=== PATIENT | male | born 1955 | race Hispanic/Latino ===

== ENCOUNTER 2020-10-19 20:31 | Inpatient (IN) | payer OTHER ==
[~2020-10-19] VITALS: Ht 170.2 cm; Wt 81.6 kg
[2020-10-19 21:09] LABS: BASOPHILS % 0.1 % (0.0-1.0); EOSINOPHILS % 0.3 % (0.0-6.0); HEMATOCRIT 24.9 % (38.2-49.6); HEMOGLOBIN 8.1 g/dL (14.0-18.0); LYMPHOCYTES # (AUTO) 1.1 (1.0-3.2); LYMPHOCYTES % 15.4 % (18.0-39.1); MEAN CORPUSCULAR HEMOGLOBIN 33.6 pg (28-32); MEAN CORPUSCULAR HGB CONC 32.5 g/dL (31-35); MEAN CORPUSCULAR VOLUME 103.3 fL (81-99); MONOCYTES # (AUTO) 0.4 (0.2-0.8); MONOCYTES % 5.4 % (4.4-11.3); NEUTROPHILS # (AUTO) 5.6 (2.1-6.9); NEUTROPHILS % 78.4 % (38.7-80.0); PLATELET COUNT 187 x10e3/uL (140-360); RED BLOOD COUNT 2.41 x10e6/uL (4.3-5.7); RED CELL DISTRIBUTION WIDTH 20.8 % (11.7-14.4)
[2020-10-19 21:14] LABS: CLARITY,URINE CLOUDY (CLEAR); COLOR,URINE AMBER (YELLOW)
[2020-10-19 21:15] LABS: KETONES,URINE NEGATIVE (NEGATIVE); LEUKOCYTE ESTERASE ,URINE LARGE (NEGATIVE); NITRITE,URINE NEGATIVE (NEGATIVE); PROTEIN,URINE DIPSTICK >=300 (NEGATIVE); URINE UROBILINOGEN 2 mg/dL (0.2 - 1)
[2020-10-19 21:26] LABS: BACTERIA,URINE MANY /HPF
[2020-10-19 21:27] LABS: ALBUMIN 2.1 g/dL (3.5-5.0); ALBUMIN/GLOBULIN RATIO 0.4 (0.8-2.0); ANION GAP 15.1 mmol/L (8-16); CALCIUM 8.2 mg/dL (8.4-10.2); CREATININE, SERUM 1.7 mg/dL (0.72-1.25); POTASSIUM 4.1 mmol/L (3.5-5.1)
[2020-10-19 21:33] LABS: CREATINE KINASE MB 10.1 ng/mL (0-5.0)
[2020-10-19] MEDS ORDERED: Vancomycin IV 1 GM in SODIUM CHLORIDE 0.9% 250ML 250 ML IV STA (23:49)
[2020-10-20] MEDS ORDERED: CEFEPIME 1 GM in SODIUM CHLORIDE 0.9% 50ML 50 ML IV SCH ×2
[2020-10-20] MEDS ORDERED: ONDANSETRON HCL INJ 2MG/ML 2ML 2 MG/ML VIAL IV STA (00:18)
[2020-10-20] MEDS ORDERED: MORPHINE SULFATE INJ 4 MG/ML INJ 1ML IV STA (00:18)
[2020-10-20] MEDS ORDERED: ONDANSETRON HCL INJ 2MG/ML 2ML 2 MG/ML VIAL ONE (00:19)
[2020-10-20] MEDS ORDERED: MORPHINE SULFATE INJ 2 MG/ML SYR ONE (00:19)
[2020-10-20] MEDS ORDERED: SODIUM CHLORIDE 0.9% 1000ML 1,000 ML IV ONE (01:15)
[2020-10-20] MEDS ORDERED: BUMETANIDE1 MG PO (05:40)
[2020-10-20] MEDS ORDERED: ASPIRIN81 MG PO (05:40)
[2020-10-20] MEDS ORDERED: CETIRIZINE HCL5 MG PO (05:40)
[2020-10-20] MEDS ORDERED: METOPROLOL TART25 MG PO (05:40)
[2020-10-20] MEDS ORDERED: LIDOCAINE PATCH (05:40)
[2020-10-20] MEDS ORDERED: MIDODRINE HCL5 MG PO (05:40)
[2020-10-20] MEDS ORDERED: INSULIN LI100 UNIT/1 SC (05:40)
[2020-10-20] MEDS ORDERED: LACTULOSE20 GM/30 M PO (05:40)
[2020-10-20] MEDS ORDERED: ACETAMINOPHEN325 M1 PO (05:40)
[2020-10-20] MEDS ORDERED: MS CONTIN15 MG PO (06:03)
[2020-10-20] MEDS ORDERED: CRESTOR10 MG PO (06:03)
[2020-10-20] MEDS ORDERED: NEOMYCIN SULFA500 MG PO (06:03)
[2020-10-20] MEDS ORDERED: PERCOCET 10-321 EACH PO (06:03)
[2020-10-20] MEDS ORDERED: ZOFRAN4 MG PO (06:03)
[2020-10-20 09:27] LABS: CREATINE KINASE MB 5.7 ng/mL (0-5.0)
[2020-10-20] MEDS ORDERED: GADOBENATE DIMEGLUMINE 1 ML IV ONE (10:48)
[2020-10-20] MEDS ORDERED: SODIUM CHLORIDE 0.9% 250ML 250 ML ONE (13:33)
[2020-10-20] MEDS: CEFTRIAXONE 1 GM in SODIUM CHLORIDE 0.9% 50ML 50 ML IV SCH (18:00)
[2020-10-21] MEDS ORDERED: DEXTROSE 50% SYRINGE 50 ML IV PRN (14:45)
[2020-10-21] MEDS: INSULIN REGULAR, HUMAN 100 UNIT/1 ML 3ML VIAL SQ SCH ×2 (17:06→21:00)
[2020-10-21] MEDS: LACTULOSE SYRUP 20 GM/30 ML UDC PO SCH ×2 (17:07→21:00)
[2020-10-21] MEDS: CEFTRIAXONE 1 GM in SODIUM CHLORIDE 0.9% 50ML 50 ML IV SCH (17:07)
[2020-10-21 17:26] LABS: CREATINE KINASE MB 5.6 ng/mL (0-5.0)
[2020-10-21 20:00] VITALS: BP 127/67
[2020-10-21 23:40] VITALS: BP 136/69
[2020-10-21] MEDS ORDERED: SODIUM CHLORIDE 0.9% 250ML 250 ML ONE (23:51)
[2020-10-22] VITALS (7 sets, daily range): BP systolic 118–138; BP diastolic 64–75
[2020-10-22] MEDS ORDERED: SODIUM CHLORIDE 0.9% 250ML 250 ML IV ONE (00:15)
[2020-10-22 02:17] LABS: BASOPHILS % 0.3 % (0.0-1.0); EOSINOPHILS # (AUTO) 0.1 (0.0-0.4); EOSINOPHILS % 0.7 % (0.0-6.0); HEMATOCRIT 21.1 % (38.2-49.6); LYMPHOCYTES # (AUTO) 1.3 (1.0-3.2); LYMPHOCYTES % 8.8 % (18.0-39.1); MEAN CORPUSCULAR HEMOGLOBIN 34.5 pg (28-32); MEAN CORPUSCULAR HGB CONC 32.7 g/dL (31-35); MEAN CORPUSCULAR VOLUME 105.5 fL (81-99); MONOCYTES # (AUTO) 0.8 (0.2-0.8); MONOCYTES % 5.2 % (4.4-11.3); NEUTROPHILS # (AUTO) 12.7 (2.1-6.9); NEUTROPHILS % 84.1 % (38.7-80.0); PLATELET COUNT 131 x10e3/uL (140-360); RED CELL DISTRIBUTION WIDTH 21.4 % (11.7-14.4)
[2020-10-22 02:19] LABS: HEMOGLOBIN 6.9 g/dL (14.0-18.0)
[2020-10-22] MEDS: INSULIN REGULAR, HUMAN 100 UNIT/1 ML 3ML VIAL SQ SCH ×5 (07:30→21:31)
[2020-10-22] MEDS: LACTULOSE SYRUP 20 GM/30 ML UDC PO SCH ×2 (08:45→21:00)
[2020-10-22] MEDS: HYDROMORPHONE 1MG/1ML INJ IV PRN ×2 (15:10→20:25)
[2020-10-22] MEDS: CEFTRIAXONE 1 GM in SODIUM CHLORIDE 0.9% 50ML 50 ML IV SCH (16:39)
[2020-10-23] VITALS (7 sets, daily range): BP systolic 114–137; BP diastolic 58–79
[2020-10-23] MEDS: HYDROMORPHONE 1MG/1ML INJ IV PRN ×4 (02:53→20:50)
[2020-10-23 05:30] LABS: BASOPHILS % 0.2 % (0.0-1.0); EOSINOPHILS # (AUTO) 0.3 (0.0-0.4); EOSINOPHILS % 3.4 % (0.0-6.0); HEMATOCRIT 25.3 % (38.2-49.6); HEMOGLOBIN 8.4 g/dL (14.0-18.0); LYMPHOCYTES # (AUTO) 1.2 (1.0-3.2); LYMPHOCYTES % 14.9 % (18.0-39.1); MEAN CORPUSCULAR HEMOGLOBIN 32.4 pg (28-32); MEAN CORPUSCULAR HGB CONC 33.2 g/dL (31-35); MEAN CORPUSCULAR VOLUME 97.7 fL (81-99); MONOCYTES # (AUTO) 0.4 (0.2-0.8); MONOCYTES % 5.2 % (4.4-11.3); NEUTROPHILS # (AUTO) 6.3 (2.1-6.9); NEUTROPHILS % 75.8 % (38.7-80.0); PLATELET COUNT 115 x10e3/uL (140-360); RED BLOOD COUNT 2.59 x10e6/uL (4.3-5.7); RED CELL DISTRIBUTION WIDTH 21.3 % (11.7-14.4)
[2020-10-23 05:49] LABS: INR 1.23; PROTHROMBIN TIME 16.2 seconds (11.9-14.5)
[2020-10-23 05:50] LABS: PARTIAL THROMBOPLASTIN TIME 42.8 seconds (23.8-35.5)
[2020-10-23 05:58] LABS: ANION GAP 8.2 mmol/L (8-16); CALCIUM 7.7 mg/dL (8.4-10.2); CREATININE, SERUM 1.11 mg/dL (0.72-1.25); POTASSIUM 4.2 mmol/L (3.5-5.1)
[2020-10-23] MEDS: INSULIN REGULAR, HUMAN 100 UNIT/1 ML 3ML VIAL SQ SCH ×5 (07:30→21:20)
[2020-10-23] MEDS: LACTULOSE SYRUP 20 GM/30 ML UDC PO SCH ×2 (09:00→20:58)
[2020-10-23] MEDS: CEFTRIAXONE 1 GM in SODIUM CHLORIDE 0.9% 50ML 50 ML IV SCH (16:33)
[2020-10-24] VITALS (8 sets, daily range): BP systolic 118–157; BP diastolic 54–121
[2020-10-24] MEDS: HYDROMORPHONE 1MG/1ML INJ IV PRN ×4 (05:05→23:28)
[2020-10-24] MEDS: LACTULOSE SYRUP 20 GM/30 ML UDC PO SCH ×2 (09:00→22:13)
[2020-10-24] MEDS ORDERED: SODIUM CHLORIDE 0.9% 250ML 0 ML ONE (09:38)
[2020-10-24] MEDS: INSULIN REGULAR, HUMAN 100 UNIT/1 ML 3ML VIAL SQ SCH ×3 (11:30→21:00)
[2020-10-24] MEDS: CEFTRIAXONE 1 GM in SODIUM CHLORIDE 0.9% 50ML 50 ML IV SCH (17:26)
[2020-10-25] VITALS (8 sets, daily range): BP systolic 128–156; BP diastolic 62–92
[2020-10-25] MEDS: INSULIN REGULAR, HUMAN 100 UNIT/1 ML 3ML VIAL SQ SCH ×4 (07:30→22:00)
[2020-10-25] MEDS: LACTULOSE SYRUP 20 GM/30 ML UDC PO SCH ×2 (09:00→22:00)
[2020-10-25] MEDS: HYDROMORPHONE 1MG/1ML INJ IV PRN ×4 (12:49→22:00)
[2020-10-25] MEDS: CEFTRIAXONE 1 GM in SODIUM CHLORIDE 0.9% 50ML 50 ML IV SCH (17:30)
[2020-10-26] VITALS (8 sets, daily range): BP systolic 105–141; BP diastolic 46–75
[2020-10-26] MEDS: HYDROMORPHONE 1MG/1ML INJ IV PRN ×3 (03:38→15:53)
[2020-10-26] MEDS: INSULIN REGULAR, HUMAN 100 UNIT/1 ML 3ML VIAL SQ SCH ×4 (07:30→21:00)
[2020-10-26] MEDS: LACTULOSE SYRUP 20 GM/30 ML UDC PO SCH ×2 (08:28→20:58)
[2020-10-26] MEDS: METHOCARBAMOL 500 MG TAB PO SCH ×2 (13:07→20:58)
[2020-10-26] MEDS: CEFTRIAXONE 1 GM in SODIUM CHLORIDE 0.9% 50ML 50 ML IV SCH (17:24)
[2020-10-27 00:58] VITALS: BP 140/78
[2020-10-27 05:38] VITALS: BP 157/77
[2020-10-27] MEDS: HYDROMORPHONE 1MG/1ML INJ IV PRN ×3 (06:00→14:40)
[2020-10-27 08:04] VITALS: BP 150/68
[2020-10-27] MEDS: INSULIN REGULAR, HUMAN 100 UNIT/1 ML 3ML VIAL SQ SCH ×2 (08:17→12:30)
[2020-10-27] MEDS: LACTULOSE SYRUP 20 GM/30 ML UDC PO SCH (08:17)
[2020-10-27] MEDS: METHOCARBAMOL 500 MG TAB PO SCH ×2 (08:17→15:10)
[2020-10-27 08:18] VITALS: BP 150/68
[2020-10-27 11:50] VITALS: BP 141/57
[2020-10-27 15:59] VITALS: BP 121/65
== END 2020-10-27 16:55 | disposition hospice, inpatient (51) | DRG 543 ==
LOC: ER 20:36 → ERHOLD 10-20 00:54 → MED/SURG2 10-20 04:03
PROC: 30233N1 Transfusion of Nonautologous Red Blood Cells into Peripheral Vein, Percutaneous Approach (ICD-10-PCS; principal; 2020-10-22)
DX: M48.56XA Collapsed vertebra, not elsewhere classified, lumbar region, initial encounter for fracture (principal); K76.6 Portal hypertension; K56.609 Unspecified intestinal obstruction, unspecified as to partial versus complete obstruction; K74.60 Unspecified cirrhosis of liver; E78.5 Hyperlipidemia, unspecified; K72.90 Hepatic failure, unspecified without coma; D64.9 Anemia, unspecified; G89.4 Chronic pain syndrome; D63.8 Anemia in other chronic diseases classified elsewhere; E11.22 Type 2 diabetes mellitus with diabetic chronic kidney disease; N18.2 Chronic kidney disease, stage 2 (mild); Z88.8 Allergy status to other drugs, medicaments and biological substances; Z91.041 Radiographic dye allergy status; Z91.013 Allergy to seafood
CPT/HCPCS: 36415; 70450; 71045; 72157; 72158; 74176; 80048; 80053; 81001; 82140; 82550; 82553; 82948; 83605; 83690; 84484; 85025; 85610; 85651; 85730; 86140; 86850; 86900; 86920; 87040; 93005; 97139; J0692; J0696; J1170; J1817; J2270; J2405; J3370; J7030; J7050; P9016; U0002